=== PATIENT | male | born 1975 | race Caucasian/White ===

== ENCOUNTER 2018-09-17 21:24 | Observation (INO) | payer OTHER ==
--- NOTE | 2018-09-17 21:30 | EDPHY ---
H & P Time Seen by Provider: 09/17/18 21:24 HPI/ROS: CHIEF COMPLAINT: Seizure HISTORY OF PRESENT ILLNESS: Found at 8:46 p.m. At the nursing home having a seizure next to his bed. Given Narcan intranasally and had a total of about 8 min of seizure, eventually got 2.5 mg IM Versed and the rest IV for total of 5 mg. Remainder of history and complete review of systems unable as the patient is nonverbal on arrival. PAST MEDICAL HISTORY: Unobtainable on arrival. Paperwork from the nursing home states that he says that he told them he has personality disorder, schizophrenia and bipolar. He also told the nursing home he has stage III cancer of the lungs and stage III urethral cancer and seizures but I am unable to verify any of that. Social history: Comes from the nursing home General Appearance: Patient is obtunded Eyes: Right gaze preference with 2 mm pupils. ENT, Mouth: Normal mucous membranes. No tongue lacerations seen. Respiratory: Normal respiratory effort, breath sounds equal, lungs are clear to auscultation. Cardiovascular: Regular rate and rhythm. Gastrointestinal: Abdomen is soft and non tender. Neurological: Patient has spontaneous respirations. He does have a little bit of movement of his extremities. Nonverbal. Skin: Warm and dry, no rashes. No lacerations or abrasions. Musculoskeletal: No peripheral edema. No extremity deformity or step-off. No spinal step-off or tenderness. Psychiatric: Unable, nonverbal Emergency Department course/MDM: Patient has oxygen saturation in the mid 90s on nasal cannula. Plan for Chem 8, EKG, CBC and electrolytes, Tylenol and aspirin, ethanol. Head and cervical spine CT. 2022: Starting to wake up, slurred speech and very groggy. Is moving all 4 extremities. Does not remember any of the events. Plan for admission for observation overnight with prolonged seizure at least 8 min, abnormal mental status even almost 2 hr later. 8: Discussed with Garcia. Admit PCU. Constitutional: Initial Vital Signs Temperature (C) 36.4 C 09/17/18 21:24 Heart Rate 54 L 09/17/18 21:24 Respiratory Rate 16 09/17/18 21:24 Blood Pressure 128/85 H 09/17/18 21:24 O2 Sat (%) 99 09/17/18 21:24 O2 Delivery Mode Room Air O2 (L/minute) 15 Allergies/Adverse Reactions: No Known Allergies Allergy (Verified 09/17/18 21:32) Home Medications: Medication Instructions Recorded Alex 09/17/18 Medical Decision Making - Diagnostics EKG Interpretation: 12-lead EKG interpreted by me; official reading is in computer system. My interpretation is sinus rhythm with early repolarization, rate 54. Imaging Results: Imaging Impressions Cervical Spine CT 09/17/18 21:30 Impression: No evidence for acute intracranial abnormality. Nasal bone fracture. CT Cervical Spine Without Contrast History: Trauma. Seizure. Technique: 1.25 mm helical images were obtained of the cervical spine without contrast. Multiplanar reformation was performed. Radiation dose reduction technique was utilized. Findings: No evidence for fracture of the cervical spine. No evidence for spondylolisthesis. Disk heights are maintained. No significant spinal canal or neural foraminal encroachment. No evidence for prevertebral soft tissue swelling. Impression: No evidence for cervical spine fracture. Results called and given to Dr. Cody Tapia on 09/17/2018, 22:13. Head CT 09/17/18 21:30 Impression: No evidence for acute intracranial abnormality. Nasal bone fracture. CT Cervical Spine Without Contrast History: Trauma. Seizure. Technique: 1.25 mm helical images were obtained of the cervical spine without contrast. Multiplanar reformation was performed. Radiation dose reduction technique was utilized. Findings: No evidence for fracture of the cervical spine. No evidence for spondylolisthesis. Disk heights are maintained. No significant spinal canal or neural foraminal encroachment. No evidence for prevertebral soft tissue swelling. Impression: No evidence for cervical spine fracture. Results called and given to Dr. Cody Tapia on 09/17/2018, 22:13. Imaging: Discussed imaging studies w/ heeler Radiologist Differential Diagnosis: Differential diagnosis considered for a seizure including but not limited to electrolyte abnormality, alcohol withdrawal, medication noncompliance, head injury, and breakthrough seizure. - Data Points Laboratory Results: Laboratory Results 09/17/18 21:28 09/17/18 21:28 09/17/18 09/17/18 09/17/18 21:30 21:28 21:28 WBC 6.38 10^3/uL 10^3/uL (3.80-9.50) RBC 5.42 10^6/uL 10^6/uL (4.40-6.38) Hgb 17.1 g/dL g/dL (13.7-17.5) POC Hgb 17.7 gm/dL H gm/dL (13.7-17.5) Hct 50.6 % % (40.0-51.0) POC Hct 52 % H % (40-51) MCV 93.4 fL fL (81.5-99.8) MCH 31.5 pg pg (27.9-34.1) MCHC 33.8 g/dL g/dL (32.4-36.7) RDW 12.5 % % (11.5-15.2) Plt Count 270 10^3/uL 10^3/uL (150-400) MPV 9.6 fL fL (8.7-11.7) Neut % (Auto) 54.2 % % (39.3-74.2) Lymph % (Auto) 35.6 % % (15.0-45.0) [place] % (Auto) 8.3 % % (4.5-13.0) Eos % (Auto) 1.3 % % (0.6-7.6) Baso % (Auto) 0.3 % % (0.3-1.7) Nucleat RBC Rel Count 0.0 % % (0.0-0.2) Absolute Neuts (auto) 3.46 10^3/uL 10^3/uL (1.70-6.50) Absolute Lymphs (auto) 2.27 10^3/uL 10^3/uL (1.00-3.00) Absolute Monos (auto) 0.53 10^3/uL 10^3/uL (0.30-0.80) Absolute Eos (auto) 0.08 10^3/uL 10^3/uL (0.03-0.40) Absolute Basos (auto) 0.02 10^3/uL 10^3/uL (0.02-0.10) Absolute Nucleated RBC 0.00 10^3/uL 10^3/uL (0-0.01) Immature Gran % 0.3 % % (0.0-1.1) Immature Gran # 0.02 10^3/uL 10^3/uL (0.00-0.10) POC Sodium 143 mEq/L mEq/L (135-145) Sodium 137 mEq/L mEq/L (135-145) POC Potassium 3.2 mEq/L L mEq/L (3.3-5.0) Potassium 3.6 mEq/L mEq/L (3.3-5.0) POC Chloride 106 mEq/L mEq/L (97-110) Chloride 105 mEq/L mEq/L (97-110) Carbon Dioxide 22 mEq/l mEq/l (22-31) Anion Gap 10 mEq/L mEq/L (6-14) POC BUN 21 mg/dL mg/dL (7-23) BUN 20 mg/dL mg/dL (7-23) Creatinine 1.3 mg/dL mg/dL (0.7-1.3) POC Creatinine 1.2 mg/dL mg/dL (0.7-1.3) Estimated GFR 60 Glucose 89 mg/dL mg/dL (70-100) POC Glucose 89 mg/dL mg/dL (70-100) Calcium 9.6 mg/dL mg/dL (8.5-10.4) Salicylates < 1.0 mg/dL L mg/dL (2.0-20.0) Acetaminophen < 10 mcg/mL L mcg/mL (10-30) Ethyl Alcohol < 10 mg/dL mg/dL (0-10) Point of Care Test Results: Chemistry 09/17/18 21:30 POC Sodium 143 mEq/L mEq/L (135-145) POC Potassium 3.2 mEq/L L mEq/L (3.3-5.0) POC Chloride 106 mEq/L mEq/L (97-110) POC BUN 21 mg/dL mg/dL (7-23) POC Creatinine 1.2 mg/dL mg/dL (0.7-1.3) POC Glucose 89 mg/dL mg/dL (70-100) ISTAT H&H 09/17/18 21:30 POC Hgb 17.7 gm/dL H gm/dL (13.7-17.5) POC Hct 52 % H % (40-51) Departure - Departure Disposition: [facility] Acute Clinical Impression: Seizure Nasal bone fracture Qualifiers: Encounter type: initial encounter Fracture type: closed Qualified Code(s): S02.2XXA - Fracture of nasal bones, initial encounter for closed fracture Condition: Fair
[2018-09-17 21:37] LABS: PLATELET COUNT 270 10^3/uL (150-400)
--- NOTE | 2018-09-17 21:40 | CPEKG ---
Test Reason : OPEN Blood Pressure : / mmHG Vent. Rate : 054 BPM Atrial Rate : 054 BPM P-R Int : 166 ms QRS Dur : 119 ms QT Int : 433 ms P-R-T Axes : 029 045 041 degrees QTc Int : 411 ms Sinus rhythm Nonspecific intraventricular conduction delay ST elev, probable normal early repol pattern Confirmed by Cody Tapia ([id number]) on 09/17/2018 9:40:07 PM Referred By: Confirmed By:Cody Tapia
[2018-09-17] MEDS ORDERED: ONDANSETRON DISINTEGRATING 4 MG TAB PO PRN (22:30)
[2018-09-17] MEDS ORDERED: ACETAMINOPHEN 325 MG TAB PO PRN (22:30)
[2018-09-17] MEDS ORDERED: ONDANSETRON 4 MG/2 ML VIAL IVP PRN (22:30)
[2018-09-17] MEDS ORDERED: levETIRAcetam 1000MG/NACL 100 ML IV ONE (22:31)
--- NOTE | 2018-09-18 00:25 | PDGENHP ---
History and Physical - Chief Complaint Seizure - History of Present Illness 43 yo M w/ hx of schizophrenia and seizure d/o presents after a presumed seizure. Patient was found in his cell having a seizure, which reportedly lasted 8 minutes. He received a total of 5 mg of Versed to terminate the seizure. He was very sedated upon arrival to the ED but has been slowly becoming more alert with time. By the time of my evaluation the patient is able to contribute to the history. He tells me he only remembers falling to the floor. He says he has been having seizures since being admitted to [facility] 1 month ago. I can find no records of this in [facility]. He tells me he takes Keppra once daily for seizure disorder. He also tells me he has a history of Stage III lung CA as well as urethral CA with resultant strictures. I do not have access to records to verify these diagnoses. Case discussed with ED physician Dr. Cody Tapia, records reviewed in EMR. History Information - Allergies/Home Medication List Allergies/Adverse Reactions: No Known Allergies Allergy (Verified 09/17/18 21:32) Home Medications: Keppra 09/17/18 [Last Taken Unknown] I have personally reviewed and updated: family history, medical history - Past Medical History Additional medical history: Seizure disorder. Schizophrenia - Surgical History Additional surgical history: Wrist surgery. Knee surgery - Family History Positive for: cancer, diabetes type II - Social History Smoking Status: Never smoked Review of Systems Review of Systems: ROS: 10pt was reviewed & negative except for what was stated in HPI & below Physical Exam Physical Exam: Temp Pulse Resp BP Pulse Ox 36.4 C 54 L 16 144/94 H 94 09/17/18 21:24 09/17/18 23:48 09/17/18 23:48 09/17/18 23:48 09/17/18 23:48 Constitutional: no apparent distress, not in pain Eyes: PERRL, EOMI Ears, Nose, Mouth, Throat: moist mucous membranes, no oral mucosal ulcers Cardiovascular: regular rate and rhythym, no murmur, rub, or gallop Respiratory: no respiratory distress, clear to auscultation Gastrointestinal: normoactive bowel sounds, soft, non-tender abdomen Skin: warm, normal color Musculoskeletal: full muscle strength, no muscle tenderness Neurologic: AAOx3, CN II-XII Intact Psychiatric: interacting appropriately, flat affect Lab Data & Imaging Review 09/17/18 21:28 09/17/18 21:28 WBC 6.38 10^3/uL (3.80-9.50) 09/17/18 21: RBC 5.42 10^6/uL (4.40-6.38) 09/17/18 21: Hgb 17.1 g/dL (13.7-17.5) 09/17/18 21: POC Hgb 17.7 gm/dL (13.7-17.5) H 09/17/18 21:30 Hct 50.6 % (40.0-51.0) 09/17/18 21: POC Hct 52 % (40-51) H 09/17/18 21: MCV 93.4 fL (81.5-99.8) 09/17/18 21: MCH 31.5 pg (27.9-34.1) 09/17/18 21: MCHC 33.8 g/dL (32.4-36.7) 09/17/18 21: RDW 12.5 % (11.5-15.2) 09/17/18 21: Plt Count 270 10^3/uL (150-400) 09/17/18 21: MPV 9.6 fL (8.7-11.7) 09/17/18 21: Neut % (Auto) 54.2 % (39.3-74.2) 09/17/18 21: Lymph % (Auto) 35.6 % (15.0-45.0) 09/17/18 21: [place] % (Auto) 8.3 % (4.5-13.0) 09/17/18 21: Eos % (Auto) 1.3 % (0.6-7.6) 09/17/18: Baso % (Auto) 0.3 % (0.3-1.7) 09/17/18: Nucleat RBC Rel Count 0.0 % (0.0-0.2) 09/17/18 21: Absolute Neuts (auto) 3.46 10^3/uL (1.70-6.50) 09/17/18 21: Absolute Lymphs (auto) 2.27 10^3/uL (1.00-3.00) 09/17/18 21:28 Absolute Monos (auto) 0.53 10^3/uL (0.30-0.80) 09/17/18 21:28 Absolute Eos (auto) 0.08 10^3/uL (0.03-0.40) 09/17/18 21:28 Absolute Basos (auto) 0.02 10^3/uL (0.02-0.10) 09/17/18 21:28 Absolute Nucleated RBC 0.00 10^3/uL (0-0.01) 09/17/18 21: Immature Gran % 0.3 % (0.0-1.1) 09/17/18: Immature Gran # 0.02 10^3/uL (0.00-0.10) 09/17/18 21:28 POC Sodium 143 mEq/L (135-145) 09/17/18 21:30 Sodium 137 mEq/L (135-145) 09/17/18 21:28 POC Potassium 3.2 mEq/L (3.3-5.0) L 09/17/18 21:30 Potassium 3.6 mEq/L (3.3-5.0) 09/17/18 21:28 POC Chloride 106 mEq/L (97-110) 09/17/18 21:30 Chloride 105 mEq/L (97-110) 09/17/18 21:28 Carbon Dioxide 22 mEq/l (22-31) 09/17/18 21:28 Anion Gap 10 mEq/L (6-14) 09/17/18 21:28 POC BUN 21 mg/dL (7-23) 09/17/18 21:30 BUN 20 mg/dL (7-23) 09/17/18 21:28 Creatinine 1.3 mg/dL (0.7-1.3) 09/17/18 21:28 POC Creatinine 1.2 mg/dL (0.7-1.3) 09/17/18 21:30 Estimated GFR 60 09/17/18 21:28 Glucose 89 mg/dL (70-100) 09/17/18 21:28 POC Glucose 89 mg/dL (70-100) 09/17/18 21:30 Calcium 9.6 mg/dL (8.5-10.4) 09/17/18 21:28 Salicylates < 1.0 mg/dL (2.0-20.0) L 09/17/18 21:28 Acetaminophen < 10 mcg/mL (10-30) L 09/17/18 21:28 Ethyl Alcohol < 10 mg/dL (0-10) 09/17/18 21:28 Imaging Review: Imaging Impressions Cervical Spine CT 09/17/18 21:30 Impression: No evidence for acute intracranial abnormality. Nasal bone fracture. CT Cervical Spine Without Contrast History: Trauma. Seizure. Technique: 1.25 mm helical images were obtained of the cervical spine without contrast. Multiplanar reformation was performed. Radiation dose reduction technique was utilized. Findings: No evidence for fracture of the cervical spine. No evidence for spondylolisthesis. Disk heights are maintained. No significant spinal canal or neural foraminal encroachment. No evidence for prevertebral soft tissue swelling. Impression: No evidence for cervical spine fracture. Results called and given to Dr. Cody Tapia on 09/17/2018, 22:13. Head CT 09/17/18 21:30 Impression: No evidence for acute intracranial abnormality. Nasal bone fracture. CT Cervical Spine Without Contrast History: Trauma. Seizure. Technique: 1.25 mm helical images were obtained of the cervical spine without contrast. Multiplanar reformation was performed. Radiation dose reduction technique was utilized. Findings: No evidence for fracture of the cervical spine. No evidence for spondylolisthesis. Disk heights are maintained. No significant spinal canal or neural foraminal encroachment. No evidence for prevertebral soft tissue swelling. Impression: No evidence for cervical spine fracture. Results called and given to Dr. Cody Tapia on 09/17/2018, 22:13. Visualized and Interpreted EKG results: Yes EKG Interpretation: Positive for: normal sinsus rhythm, other (J point elevation anterior leads) Assessment & Plan Assessment: 43 yo M w/ seizure disorder presents after a seizure. Plan: 1. Seizure - Patient reportedly suffered an 8 minute seizure while in detention. He received a total of 5 mg of Versed prior to arrival. He tells me he takes Keppra daily but does not know the dose. He also tells me he has been having seizures since an admission to [facility] one month ago, I cannot find records of this in [facility]. - Admit for observation - Keppra 1g IV now - Neurology consultation placed - Obtain [facility] records in the morning if possible - Seizure precautions ordered 2. Schizophrenia, bipolar? - Patient cannot tell me if he takes medication for these conditions. 3. Cancer history - Patient tells me he has Stage III lung cancer as well as urethral cancer leading to strictures. I cannot find records related to these diagnoses. 4. Nasal fracture - Traumatic, related to seizure event. Diet - NPO pending improvement in mental status Code - Full Ppx - LMWH Dispo - Admit under observation status
[2018-09-18 04:50] LABS: PLATELET COUNT 258 10^3/uL (150-400)
[2018-09-18] MEDS: LORazepam 2 MG/ML INJ IVP PRN ×2 (08:12→09:32)
[2018-09-18] MEDS ORDERED: LORazepam 2 MG/ML INJ ONE ×2 (08:13→08:17)
[2018-09-18] MEDS ORDERED: LORazepam 2 MG/ML INJ IVP ONE (08:17)
--- NOTE | 2018-09-18 08:19 | ASMTCMCOM ---
CM Note CM Note Notes: Patient presented to [facility] ED with [facility] seizure from [facility]. He has a hx of Schizophrenia, Bipolar and Lung Ca. Per H&P, patient was at [facility] approx. 1 month ago. Anticipate patient will d/c back to [facility] when medically stable. CM will f[facility]u with [facility] when able. Plan: Likely a return to [facility] Date Signed: 09/18/2018 08:19 AM Electronically Signed By:Nia Sotelo RN
[2018-09-18] MEDS ORDERED: ENOXAPARIN 40 MG/0.4 ML SYR SC SCH (09:00)
[2018-09-18] MEDS ORDERED: levETIRAcetam 750 MG in NS 100 ML IV SCH (09:00)
--- NOTE | 2018-09-18 12:31 | NEUROPROG ---
Assessment: PLEASE SEE FULL CONSULT DICTATED NOTE 1. Transient neurologic symptoms I directly witness on the patient's events and was consistent with a nonepileptic behavioral spell. I also spoke to 2 nurses who witnessed his prolonged event this morning and these descriptions were consistent with a nonepileptic spell and nearly identical to what I directly witnessed in ICU. If the patient returns with these events, I recommend transfer from the emergency department to a facility with continuous EEG monitoring ([place] or [facility]). He is being discharged on his baseline medications including Keppra 500 mg twice daily. He has been on this medication for 1-2 years. He can follow up with his outpatient neurologist in [place]. Objective: Vital Signs Temp Pulse Resp BP Pulse Ox 36.7 C 66 16 154/77 H 94 09/18/18 09:11 09/18/18 09:11 09/18/18 09:11 09/18/18 09:11 09/18/18 09:11 Laboratory Results 09/18/18 03:54 09/18/18 03:54 09/17/18 09/18/18 09/19/18 05:59 05:59 05:59 Intake Total 150 Output Total 130 Balance 20 Allergies/Adverse Reactions: No Known Allergies Allergy (Verified 09/17/18 21:32)
[2018-09-18 12:34] VITALS: BP 148/85
--- NOTE | 2018-09-18 13:50 | GCON ---
NEUROLOGY CONSULT REFERRING PHYSICIAN: Jerad Rivero MD CHIEF COMPLAINT: convulsion BILLING INFORMATION: This is 45 minutes in critical care time in acute evaluation, diagnosis and treatment of an active convulsive event in my presence in the ICU. HISTORY OF PRESENT ILLNESS: The patient is a 43-year-old gentleman who was at the skilled nursing. Apparently, he had a convulsive event at the skilled nursing and was brought to the ER. He was given Narcan intranasally and apparently had several minutes of convulsive activity, getting Versed. He was then admitted from the ER for further evaluation. He had imaging in the emergency department, including CT of the cervical spine, which showed no evidence of cervical spine fracture, and CT of the head, which showed no evidence of acute intracranial abnormality. Then around 8:00 or 8:30 this morning, the patient apparently had a repeat convulsive event on . I spoke directly to 2 nurses who directly observed this event. Basically, the patient stated he was feeling like he was going to have a seizure and then tightened up all 4 extremities into a position, with generalized shivering and forced eye closure. In fact, during the event, he went from the supine to the prone position apparently volitionally. He received a total dose of 4 mg of IV benzodiazepine, and the event resolved after around 20-22 minutes. Then, he told the ICU physician that he was having an event while he was totally awake and alert, that he was "having a seizure." This was right prior to me seeing the patient. I walked in the room. The patient was awake, alert, and lucid in conversation, and then proceeded to have an event in my presence. Essentially, after asking him to hyperventilate in terms of a provocation type maneuver, he began having what appeared to be volitional clenching of his fists , then tightening his whole body in the position and rocking back and forth with forced eye closure. I was immediately able to speak with him after 2 or 3 minutes and tell him that I did not think this was a seizure. He was clearly cogent and understood what I was saying and then responded back and let me know, though, that he has had real seizures in the past. REVIEW OF SYSTEMS: Ten-point review of systems done, only pertinent to the HPI. For past medical history, social history, family history, medications, and allergies, see Dr. Rivero's H and P. PHYSICAL EXAM: The patient was awake and alert. Face symmetric. No aphasia. No focal weakness. He had an event in my presence, as described in the HPI; this was consistent with a nonepileptic behavioral spell. IMPRESSION AND PLAN: 1. Transient neurologic symptoms. 2. Non-epileptic events Based on the descriptions of the events this morning and my direct observation of the event in front of me in the ICU, these events are most consistent with nonepileptic behavioral spells. The patient was counseled at length. He states that he has had "seizures" in the past as well. This is unclear. He states they began after a "brain injury" (~ 3 or 4 years ago, per patient). Certainly, this could be an epilepsy risk factor. At this point, I cannot verify this. Going forward, I recommend he continue Keppra 500 mg twice daily. We discussed potential risks, benefits and alternatives to Keppra, including moodiness, anger , suicidal and homicidal ideation. He has been on this medication for ~ 2 years (per patient report) without any of these mood side effects. I screened him in great detail, and the patient tells me he has been on this medication, as noted, for around 2 years without any mood changes whatsoever to his baseline. I counseled him that if he were to have any mood side effects from Keppra, it should be discontinued immediately, and he could be on a different anti-seizure medication. The patient lives in [place] and will follow up with his neurologist in [place], who he thinks he may have seen previously for ongoing neurological care. As these events were consistent with nonepileptic behavioral events, he will be discharged back to the skilled nursing. He will be on indefinite driving restrictions and seizure precautions. He is agreeable. If the patient were to return for these similar events, I recommend that he be not admitted to [facility] as we do not have continuous video EEG monitoring. He should be transferred to a facility which provides continuous EEG monitoring for definitive electrographic spell classification. No further recommendations. We will sign off now and follow up as needed. Please do not hesitate to call if there are any questions or changes in neurologic status with this patient. /[id number]/MODL MTDD
--- NOTE | 2018-09-18 15:35 | GCON ---
CRITICAL CARE CONSULTATION. HISTORY OF PRESENT ILLNESS: This patient is a 43-year-old male who was in care home who apparently was thought to have seizure at [facility] and was somnolent in the emergency department and got Narcan intranas ally and had several minutes of some type of convulsive activity leading later to Versed. He was adm itted for further evaluation. This morning said he was having a seizure again and apparently volitio garcía went from a supine position and climbed into a position, tightened up all 4 extremities i ncluding closing his eyes tightly and had generalized shivering. He was treated with 4 mg of Ativan at that time and the event resolved after about 20 minutes. He came to the ICU where I observed him and he also went to a position, though remained awake and told me he was having a seizure at th at time. There was no tonoclonic activity observed and no eye movement, and I continued to talk to t he patient with appropriate given and take. During that time, his blood pressure and heart rate symone ined unchanged and showed no evidence of seizure activity at that time. He was also seen by Neurolog y and had a similar event in his presence, though he was able to follow commands, hyperventilated, an d was able to carry on a conversation with Neurology and clearly knew what he was saying and responde d back and said that he had real seizures in the past. REVIEW OF SYSTEMS: Otherwise negative including any recent infections or head trauma. PAST MEDICAL HISTORY: Seizure disorder and at least as listed in his history as supposed to be on Ke ppra. He also has history of schizophrenia. PAST SURGICAL HISTORY: Wrist and knee surgeries. HOME MEDICATION: Only is Keppra. FAMILY HISTORY: Lacks seizures, but does have cancer and diabetes. SOCIAL HISTORY: He is a nonsmoker, no alcohol, and as I said he is in fact incarcerated. MEDICATIONS: Tylenol, Lovenox, Keppra, Ativan p.r.n., and Zofran. PHYSICAL EXAM: VITAL SIGNS: At the time of my visit, his blood pressure was 106/77, heart rate 69, respirations 18, oxygen saturation 94% on room air. GENERAL: He was mildly somnolent, but easily aw sole. He answered questions appropriately and was in no apparent respiratory distress. HEENT: His p upils were equally round and reactive to light without nystagmus or scleral icterus. Mucous membrane s moist without erythema or exudate. NECK: Supple without adenopathy or jugular vein distention. L UNGS: Breath sounds were clear to auscultation bilaterally without wheezes, rubs, rales. HEART: Re gular rate and rhythm without murmurs, rubs, gallops. ABDOMEN: Soft, nontender, nondistended withou t hepatosplenomegaly. EXTREMITIES: No clubbing, cyanosis, or edema. NEUROLOGIC: Notable for mild somnolence as described above, but no obvious focal abnormalities. My exam was hindered by his position. SKIN: Warm and dry without evidence of rash. OBJECTIVE DATA: White count 6.3, hematocrit 50, platelets 270. Normal complete metabolic panel. To xicology screen positive for marijuana only. Alcohol was normal. ASSESSMENT AND PLAN: What sounds to be probable pseudo-seizure, since his symptoms were quite atypic al and I think it is very unlikely that it is in fact seizure. It is not clear to me the sequence of events, but certainly Narcan is known to induce seizure in patients and if his Narcan was given firs t and that was followed by seizure activity that could potentially explain it. I defer to Dr. Dakotah cha any further recommendations, but I think he is quite stable and can probably return to the [facility]. /[id number]/MODL
--- NOTE | 2018-09-19 03:23 | GDS ---
DISCHARGE DIAGNOSES: 1. Pseudoseizures. 2. Schizophrenia. HISTORY OF PRESENT ILLNESS: The patient is a 43-year-old male who presented after having a [facility] i n [facility]. He was admitted under observation. He had multiple recurrent events throughout his hospital stay here. He was seen in consultation with Neurology. These were clearly pseudoseizures. No furt her aggressive measures were performed, and he was return to [facility]. DISCHARGE MEDICATIONS: Please see computer record for full detailed list. There were no new medicat ions given at time of hospital discharge. ADDITIONAL DISCHARGE INSTRUCTIONS: Discharge back to [facility]. Patient was seen and examined by me on the day of discharge. /[id number]/MODL
== END 2018-09-18 14:15 ==
LOC: EDUNIT# → F2W 09-18 00:28 → F2N 09-18 08:45
PROVIDERS: ADMIT Student in an Organized Health Care Education/Training Program; ATTEND Internal Medicine
DX: R56.9 Unspecified convulsions (principal); R29.818 Other symptoms and signs involving the nervous system; F20.9 Schizophrenia, unspecified; S02.2XXA Fracture of nasal bones, initial encounter for closed fracture; W19.XXXA Unspecified fall, initial encounter; Y92.149 Unspecified place in prison as the place of occurrence of the external cause
CPT/HCPCS: 70450; 72125; 93005; 96365; 96372; 96375; 96376; 99285; G0378; 80305; 82435-PO; 82565-PO; 82947-PO; 84132-PO; 84295-PO; 84520-PO; 85014-PO; G0480; J1650; J1953; J2060; J2405

== ENCOUNTER 2018-10-19 17:23 | Emergency (ER) | payer OTHER ==
[2018-10-19 17:33] VITALS: BP 158/120
--- NOTE | 2018-10-19 17:39 | EDPHY ---
H & P Stated Complaint: + DVT R LEG Source: Patient Exam Limitations: No limitations - Personal History Current Tetanus Diphtheria and Acellular Pertussis (TDAP): Unsure - Medical/Surgical History Hx Asthma: No Hx Chronic Respiratory Disease: Yes Hx Diabetes: No Hx Cardiac Disease: No Hx Renal Disease: No Hx Cirrhosis: No Hx Alcoholism: No Hx HIV/AIDS: No Hx Splenectomy or Spleen Trauma: No Other PMH: seizure, tbi, suicide attempt by hanging, Cancer stage 3 urethral cancer and stage 3 lung cancer, bipolar, malignant stricture disease, stroke - Social History Smoking Status: Heavy smoker Time Seen by Provider: 10/19/18 17:33 HPI/ROS: HPI: This is a 43-year-old male who presents with Chief Complaint: Positive for right DVT from retirement Location: Right leg Quality: Swelling and pain Duration: 4 days Signs and Symptoms: No bleeding, no radiation, no numbness, no weakness, no tingling, no incontinence, no decreased range of motion, + swelling, + pain, no fever Timing: Rapid onset, constant Severity: Moderate Context: Patient has a history of schizophrenia, stage III urethral cancer and lung cancer, presents with [facility] [employer] from retirement with outpatient lower extremity venous ultrasound showing occlusive mid calf deep venous thrombosis that I personally reviewed the report. Patient reports that he is ambulatory without deficits. He complains of constant, moderate, nonradiating pain. Denies LOC/head injury/neck pain/dizziness/nausea/vomiting/amnesia. Chart review shows that the patient was admitted to this hospital and November for seizures but neurology evaluated the patient and diagnosed him with pseudoseizures. Heavy smoker in the past but none since incarcerated. Modifying Factors: None Comment: ROS: A comprehensive 10 system review of systems is otherwise negative aside from elements mentioned in the history of present illness. MEDICAL/SURGICAL/SOCIAL HISTORY: Medical history: Schizophrenia, seizure, tbi, suicide attempt by hanging, Cancer stage 3 urethral cancer and stage 3 lung cancer, bipolar, malignant stricture disease, stroke Surgical history: Denies Social history: Currently incarcerated. Heavy smoker. CONSTITUTIONAL: Polite and cooperative, in retirement uniform, handcuffed to the bed , awake and alert, no obvious distress HEENT: Atraumatic and normocephalic. NECK: supple EXTREMITIES: 2/2 pedal pulses, strength 5/5, right lower extremity is slightly larger than the left lower extremity. Warm to touch. No redness, warmth. Positive Homans sign on the right. No palpable cords. No varicose veins. DIP/ PIP/MCP flexion/extension intact with good light touch sensation. no deformities , no clubbing, no cyanosis or edema. NEUROLOGICAL: no focal neuro deficits. GCS 15. Light touch sensation intact. SKIN: Warm and dry, no erythema. no rash. Good capillary refill. (Khadijah Stiles) Constitutional: Initial Vital Signs Temperature (C) 36.8 C 10/19/18 17:30 Heart Rate 69 10/19/18 17:30 Respiratory Rate 16 10/19/18 17:30 Blood Pressure 158/120 H 10/19/18 17:30 O2 Sat (%) 96 10/19/18 17:30 O2 Delivery Mode Room Air Allergies/Adverse Reactions: No Known Allergies Allergy (Verified 09/17/18 21:32) Home Medications: Medication Instructions Recorded levETIRAcetam [Keppra 500 mg (*)] 500 mg PO BID 09/18/18 Advair 10/19/18 Albuterol 10/19/18 Apixaban [Eliquis 30-day Starter 1 kit PO AD #1 kit 10/19/18 Pack] Buspar (*) 10/19/18 Flomax 10/19/18 Lasix 10/19/18 Prilosec 10/19/18 Seroquel 10/19/18 Tylenol 10/19/18 Medical Decision Making ED Course/Re-evaluation: Patient has an outpatient ultrasound that shows right lower extremity DVT His vital signs are stable and No signs of neurovascular compromise/tenting of skin/compartment syndrome/extremities and joints examined above and below area of concern and are neurovascularly intact/cellulitis. Patient was given Eliquis 10 mg and prescription for same. He was advised that he is not to take naproxen with Eliquis due to increased bleeding risk. This patient was seen under the supervision of my secondary supervising physician. I evaluated care for this patient independently. Discussed this patient with Dr. Call who did not see the patient. (Khadijah Stiles) I did not see this patient while he was in the emergency department. However his care is discussed with the PA while the patient was in the department. I agree with treatment plan and management (Johnathon Call) Differential Diagnosis: Leg swelling including but not limited to hypoalbuminemia, congestive heart failure, cor pulmonale, chronic venous stasis and DVT. (Khadijah Stilse) - Data Points Medications Given: Discontinued Medications Apixaban (Eliquis) 10 mg PO EDNOW ONE Stop: 10/19/18 17:48 Last Admin: 10/19/18 17:59 Dose: 10 mg Departure - Departure Disposition: Home, Routine, Self-Care Condition: Good Instructions: Apixaban (By mouth), Deep Vein Thrombosis (ED) Additional Instructions: Please start taking Eliquis 10 mg twice a day x7 days, followed by 5 mg twice a day for a minimum of 3 months. He has been given a 30 day started pack from the emergency room and will need a new prescription from his primary care provider. Patient is not to take NSAIDs along with Eliquis due to increased bleeding risk. Patient is to follow up with his primary care provider in the next 7-10 days. Referrals: PCP Not In,Dictionary [Medical Doctor] - As per Instructions Prescriptions: Apixaban [Eliquis 30-day Starter Pack] 1 kit PO AD #1 kit
[2018-10-19] MEDS ORDERED: APIXABAN 5 MG TAB PO ONE (17:47)
== END 2018-10-19 18:08 | disposition home or self-care (01) ==
DX: I82.4Z1 Acute embolism and thrombosis of unspecified deep veins of right distal lower extremity (principal); C68.0 Malignant neoplasm of urethra; C34.90 Malignant neoplasm of unspecified part of unspecified bronchus or lung; G40.909 Epilepsy, unspecified, not intractable, without status epilepticus; F20.9 Schizophrenia, unspecified; F31.9 Bipolar disorder, unspecified; Z87.820 Personal history of traumatic brain injury; Z87.891 Personal history of nicotine dependence

== ENCOUNTER 2018-11-04 13:59 | Emergency (ER) | payer OTHER ==
--- NOTE | 2018-11-04 14:09 | EDPHY ---
H & P Time Seen by Provider: 11/04/18 14:01 HPI/ROS: CHIEF COMPLAINT: "I have urinary retention" HISTORY OF PRESENT ILLNESS: 43-year-old male medical history significant for malignant stricture disease, urethral cancer, lung cancer recent diagnosis of right lower extremity DVT, currently living in long term arrives via police complaining of incomplete evacuation of bladder. He has been able to urinate but states that he feels he is incompletely voiding. Sensation of suprapubic fullness. No back or flank pain. No fever or chills. No acute testicular or genitalia trauma Last oral intake 11:00 a.m. Today REVIEW OF SYSTEMS: 10 systems reviewed and negative with the exception of the elements mentioned in the history of present illness PAST MEDICAL & SURGICAL HISTORY: Seizure disorder. Schizophrenia. TBI. Urethral cancer. Lung cancer. Bipolar disorder. Malignant stricture disease. CVA. Recent DVT, currently on Eliquis initiated less than 1 month ago in the emergency department SOCIAL HISTORY: currently living in long term PHYSICAL EXAM (Prior to examination, patient consented to physical exam, hands were washed and my usual and customary physical exam procedures followed) 1) GENERAL: Well-developed, well-nourished, alert and oriented. Appears to be in no acute distress. 2) HEAD: Normocephalic, atraumatic 3) HEENT: Pupils equal, round, reactive to light bilaterally. Sclera anicteric. 4) NECK: Full range of motion, no meningeal signs. 5) LUNGS: Clear auscultation bilaterally, no wheezes, no rhonchi, no retractions. 6) HEART: Regular rate and rhythm, no murmur, no heave, no gallop. 7) ABDOMEN: No guarding, no rebound, no focal tenderness, negative McBurney's, negative Dougherty's, negative Rovsing's, negative peritoneal sign, 8) MUSCULOSKELETAL: Moving all extremities, no focal areas of tenderness, no obvious trauma. No peripheral edema or discoloration. 9) BACK: No CVA tenderness, no midline vertebral tenderness, no fluctuance, no step-off, no obvious trauma, no visual or palpable abnormality. 10) SKIN: No rash, no petechiae. 11) : Circumcised, no urethral discharge or bleeding, bilateral testicles nontender. DIFFERENTIAL DIAGNOSIS: In no particular order, including but not limited to, cystitis, urinary retention, malignancy - Medical/Surgical History Hx Asthma: No Hx Chronic Respiratory Disease: Yes Hx Diabetes: No Hx Cardiac Disease: No Hx Renal Disease: No Hx Cirrhosis: No Hx Alcoholism: No Hx HIV/AIDS: No Hx Splenectomy or Spleen Trauma: No Other PMH: seizure, tbi, suicide attempt by hanging, Cancer stage 3 urethral cancer and stage 3 lung cancer, bipolar, malignant stricture disease, stroke - Social History Smoking Status: Heavy smoker Constitutional: Initial Vital Signs Temperature (C) 36.6 C 11/04/18 14:06 Heart Rate 91 11/04/18 14:06 Respiratory Rate 18 11/04/18 14:06 Blood Pressure 169/128 H 11/04/18 14:06 O2 Sat (%) 94 11/04/18 14:06 O2 Delivery Mode Room Air Allergies/Adverse Reactions: No Known Allergies Allergy (Verified 09/17/18 21:32) Home Medications: Medication Instructions Recorded levETIRAcetam [Keppra 500 mg (*)] 500 mg PO BID 09/18/18 Advair 10/19/18 Albuterol 10/19/18 Apixaban [Eliquis 30-day Starter 1 kit PO AD #1 kit 10/19/18 Pack] Buspar (*) 10/19/18 Flomax 10/19/18 Lasix 10/19/18 Prilosec 10/19/18 Seroquel 10/19/18 Tylenol 10/19/18 Cephalexin [Keflex] 500 mg PO TID 7 Days cap 11/04/18 Medical Decision Making ED Course/Re-evaluation: 208 p.m.: Will obtain bladder scan and re-evaluate. Care of patient under supervision of primary Supervising physician Dr Pearson with whom I discussed case. Patient states that due to his urethral strictures Hoffman catheters have never been able to been passed without OR intervention. No history of suprapubic catheter. 2:24 p.m.: Bladder scan [address] Hoffman catheter. Patient notes difficulty with this in the past due to his urethral strictures, notes that he previously niece says stated general anesthesia while in [place] 3 years ago. 3:07 p.m.: Nursing staff has attempted to pass a Hoffman catheter, unsuccessfully , able to pass approximately 2 cm into his urethra before significant resistance. Patient notes no prior history of suprapubic catheter. I consulted with Dr. Shea Guerra, urology at this time, who will come to the ER to evaluate patient, recommends patient be admitted and we will bring the urology car to the emergency department. 3:10 p.m.: Consultation Dr. Payne who will admit patient. 3:49 p.m.: Dr. Guerra has evaluated the patient, was able to pass a Hoffman catheter after dilation. Does not feel he needs to be admitted to the hospital may return to the long term. He will follow up with her in the office next week. - Data Points Medications Given: Discontinued Medications Lidocaine (Uroject Lidocaine 2% Jelly) 20 ml UR EDNOW ONE Stop: 11/04/18 14:25 Last Admin: 11/04/18 14:25 Dose: 20 ml Departure - Departure Disposition: Home, Routine, Self-Care Clinical Impression: Urinary retention, History of urethral stricture, History of cancer of urethra Condition: Fair
[2018-11-04] MEDS ORDERED: LIDOCAINE 2% JELLY 20 ML (UROJECT) ONE ×2 (14:23→15:43)
[2018-11-04] MEDS ORDERED: LIDOCAINE 2% JELLY 20 ML (UROJECT) UR ONE (14:24)
[2018-11-04 15:29] LABS: PLATELET COUNT 273 10^3/uL (150-400)
[2018-11-04] MEDS ORDERED: ONDANSETRON DISINTEGRATING 4 MG TAB PO PRN (15:36)
[2018-11-04] MEDS ORDERED: ONDANSETRON 4 MG/2 ML VIAL IVP PRN (15:36)
[2018-11-04] MEDS ORDERED: ACETAMINOPHEN 325 MG TAB PO PRN (15:36)
[2018-11-04 15:46] LABS: INR 1.25 (0.83-1.16); PROTIME(PATIENT) 15.9 SEC (12.0-15.0)
--- NOTE | 2018-11-04 16:06 | PDCONSULT ---
[employer] Note: RFC urinary retention, urethral stricture Requested by PETRA Haji HPI 43M care home inmate presents w urinary retention, bladder scan 350ml. Pt w reported hx "urethra cancer" w hx multiple urethral strictures requiring OR procedures in past w urinary retention. Has had 4 OR procedures in the past. Last one in [place]. Nursing attempted 12F mehta, met resistance at tip of penis. PMH/PSH- see above FH/SH noncontributory ROS 10 pt ROS performed, as stated in HPI, otherwise neg PE Gen NAD A*O CV regular Lungs Normal effort Abd soft Ext warm normal penile external anatomy. Using sterile technique w betadine prep and urojet lidocaine jelly, used ricardo sounds to assess strictures. Dilated fossa navicularis stricture w 14F ricardo sound, then dilated another pendulus urethral stricture w same sound. Able to advance 12F silicone catheter into into bladder, past what felt to be a 3rd stricture in bulbar urethra, w return of clear yellow urine. Removed this mehta and then passed a 16F silicone catheter w moderate resistance met again at these areas but able to pass this catheter without significant resistance and again return of clear urine. Balloon inflated w 10cc sterile water and hooked to drainage bag. Urine sample also obtained. Minimal bleeding at meatus. Pt tolerated procedure well. A/P Urinary retention 2/2 urethral stricture disease. May be scars vs recurrent tumor. DC to care home w mehta catheter for 2 weeks. Will need to be seen as outpatient at my office for mehta removal in 2 weeks and office cystoscopy for further evaluation. Shea Guerra MD [facility]
[2018-11-04 16:33] VITALS: BP 170/110
== END 2018-11-04 16:33 | disposition home or self-care (01) ==
LOC: EEVIPCON 13:59 → UNDOADMOB 15:10
PROC: 0T7D7ZZ Dilation of Urethra, Via Natural or Artificial Opening (ICD-10-PCS; principal; 2018-11-04)
PROC: 0T9B70Z Drainage of Bladder with Drainage Device, Via Natural or Artificial Opening (ICD-10-PCS; principal; 2018-11-04)
PROC: 4A0D7LZ Measurement of Urinary Volume, Via Natural or Artificial Opening (ICD-10-PCS; 2018-11-04)
DX: R33.9 Retention of urine, unspecified (principal); N35.919 Unspecified urethral stricture, male, unspecified site; G40.909 Epilepsy, unspecified, not intractable, without status epilepticus; F20.9 Schizophrenia, unspecified; F17.200 Nicotine dependence, unspecified, uncomplicated; Z79.01 Long term (current) use of anticoagulants; Z86.718 Personal history of other venous thrombosis and embolism; Z85.54 Personal history of malignant neoplasm of ureter; Z85.118 Personal history of other malignant neoplasm of bronchus and lung; Z86.73 Personal history of transient ischemic attack (TIA), and cerebral infarction without residual deficits; Z91.5 Personal history of self-harm

== ENCOUNTER 2018-11-20 20:31 | Observation (INO) | payer OTHER ==
[2018-11-20] MEDS ORDERED: NS 1,000 ML IV ONE (20:36)
[2018-11-20] MEDS ORDERED: levETIRAcetam 1000MG/NACL 100 ML IV ONE (20:37)
--- NOTE | 2018-11-20 20:42 | EDPHY ---
H & P Time Seen by Provider: 11/20/18 20:38 HPI/ROS: HPI CHIEF COMPLAINT: Multiple seizures HISTORY OF PRESENT ILLNESS: 43-year-old male, history of seizure disorder on Keppra, presents emergency room from alf for multiple seizures. The patient had a witnessed 8 min long seizure by alf staff. EMS and 911 were called. He received 5 mg IM Versed and then subsequently got an IV established received 2.5 mg IV Versed. This was given prior to arrival. EMS reports he then had 2 more seizures during transport. EMS describes seizures as jerking movements of his upper extremities. He arrives to the emergency room in ER room 11 where I greeted him. He is able to answer my questions. He states he had a seizure. He is postictal upon arrival. Past Medical History: Seizures on Keppra. DVT on Xarelto, lung CA, urethral CA , schizophrenia, traumatic brain injury, bipolar disorder, CVA, malignant stricture Past Surgical History: Unknown Social History: Unknown, currently incarcerated Family History: Unknown ROS REVIEW OF SYSTEMS: Limited due to postictal state. Exam Constitutional nontoxic, confused, sleepy. Eyes normal conjunctivae and sclera, EOMI, PERRLA. HENT oropharynx no tongue laceration. Small amount of dark blood along the upper gumline. normal inspection, atraumatic, moist mucus membranes, no epistaxis, neck supple/ no meningismus, no raccoon eyes. Respiratory clear to auscultation bilaterally, normal breath sounds, no respiratory distress, no wheezing. Cardiovascular rate normal, regular rhythm, no murmur, no edema, distal pulses normal. Gastrointestinal soft, non-tender, no rebound, no guarding, normal bowel sounds, no distension, no pulsatile mass. Genitourinary no CVA tenderness. Musculoskeletal no midline vertebral tenderness, full range of motion, no calf swelling, no tenderness of extremities, no meningismus, good pulses, neurovascularly intact. Skin pink, warm, & dry, no rash, skin atraumatic. Neurologic awake, sleepy, answers questions. Postictal. Confused. Differential Diagnosis: Includes but is not limited to in a particular order seizures, epilepsy, status, intracranial bleed, drug intoxication Medical Decision Making: Plan for this patient who had multiple seizures CT scan head without contrast, blood work, electrolytes, urinalysis, alcohol, drug screen gentle IV fluids, 1 g of Keppra. Re-evaluation: Of note old records reviewed. Patient has been admitted in the past for seizures possibly pseudoseizures. However it is unclear. He is on Keppra. EKG interpretation by me on record in [employer] system. Impression time of EKG 2046, sinus rhythm rate of 81 ST elevation in V1 V2 V3 which is very similar to his previous EKG dated 09/17/2018. Same morphology. Early Re-lana pattern. Patient has no chest pain with this EKG. CT scan head without contrast negative for acute blood called to me by Dr. Cortes. 2139: plan for admission to the hospital for observation overnight given 3 seizures. Patient has no seizure activity here in emergency room. He has received 1 g of Keppra. Vital signs are stable. Patient denies any chest pain or shortness of breath does complain of a frontal headache. Blood work reviewed. Plan for admission observation overnight. Hospitalist service consult Dr. Nuno 2156: Spoke with Dr. Reid, reviewed this patien't EKG, early-repol. Source: Patient, EMS - Medical/Surgical History Hx Asthma: No Hx Chronic Respiratory Disease: Yes Hx Diabetes: No Hx Cardiac Disease: No Hx Renal Disease: No Hx Cirrhosis: No Hx Alcoholism: No Hx HIV/AIDS: No Hx Splenectomy or Spleen Trauma: No Other PMH: seizure, tbi, suicide attempt by hanging, Cancer stage 3 urethral cancer and stage 3 lung cancer, bipolar, malignant stricture disease, stroke - Social History Smoking Status: Heavy smoker Constitutional: Initial Vital Signs Temperature (C) 37.5 C 11/20/18 20:40 Heart Rate 92 11/20/18 20:40 Respiratory Rate 16 11/20/18 20:40 Blood Pressure 181/125 H 11/20/18 20:40 O2 Sat (%) 92 11/20/18 20:40 O2 Delivery Mode Room Air Allergies/Adverse Reactions: polyester fibers Allergy (Verified 11/20/18 20:36) wool Allergy (Verified 11/20/18 20:36) Home Medications: Medication Instructions Recorded Acetaminophen [Tylenol ES 500 mg 1,000 mg PO BID 11/04/18 (*)] Advair Inhaler (Unk Strength) 1 puffs IH DAILY 11/04/18 Fluticasone Nasal [Flonase Nasal 1 sprays NASAL DAILY 11/04/18 [place]] QUEtiapine FUMARATE [Seroquel 300 mg PO HS 11/04/18 300mg (*)] Rivaroxaban [Xarelto] 20 mg PO DAILY 11/04/18 Tamsulosin HCl [Flomax 0.4 MG (*)] 0.4 mg PO DAILY 11/04/18 levETIRAcetam [Keppra 500 mg (*)] 500 mg PO BID 11/04/18 Omeprazole 20 mg PO BID 11/20/18 Prazosin HCl 2 mg PO DAILY 11/20/18 SUMAtriptan [Imitrex 50 MG (*)] 100 mg PO BID PRN 11/20/18 hydrOXYzine HCL [hydrOXYzine HCL 50 mg PO BID 11/20/18 (RX)] Medical Decision Making - Data Points Laboratory Results: Laboratory Results 11/20/18 20:40 11/20/18 20:40 Medications Given: Discontinued Medications Acetaminophen (Tylenol) 650 mg PO Q4HRS PRN PRN Reason: Pain, Mild/Fever, Can Take PO Stop: 05/19/19 22:12 Last Admin: 11/21/18 05:18 Dose: 650 mg Acetaminophen (Tylenol) 1,000 mg PO BID AMANDA Stop: 05/20/19 08:59 Last Admin: 11/21/18 08:22 Dose: Not Given Hydroxyzine HCl (Hydroxyzine Hcl) 50 mg PO BID AMANDA Stop: 05/20/19 08:59 Last Admin: 11/21/18 08:20 Dose: 50 mg Sodium Chloride (Ns) 1,000 mls @ 0 mls/hr IV ONCE ONE; Wide Open PRN Reason: Protocol Stop: 11/20/18 20:37 Last Admin: 11/20/18 21:05 Dose: 1,000 mls Levetiracetam (Keppra (Premix)) 100 mls @ 400 mls/hr IV EDNOW ONE Stop: 11/20/18 20:51 Last Admin: 11/20/18 21:08 Dose: 100 mls Influenza Virus Vaccine Quadrival (Flulaval Quad [id number] (6mo+)) 0.5 ml IM .ONCE ONE Stop: 11/21/18 10:00 Last Admin: 11/21/18 10:50 Dose: 0.5 ml Levetiracetam (Keppra) 500 mg PO BID AMANDA Stop: 05/20/19 08:59 Last Admin: 11/21/18 08:21 Dose: 500 mg Ondansetron HCl (Zofran Odt) 4 mg PO Q4HRS PRN PRN Reason: Nausea/Vomiting, Use 1st Stop: 05/19/19 22:12 Last Admin: 11/21/18 05:18 Dose: 4 mg Pantoprazole Sodium (Protonix) 40 mg PO DAILY AMANDA Stop: 05/20/19 08:59 Last Admin: 11/21/18 08:21 Dose: 40 mg Pneumococcal Polyvalent Vaccine (Pneumovax 23) 0.5 ml IM .ONCE ONE Stop: 11/21/18 10:00 Last Admin: 11/21/18 10:52 Dose: 0.5 ml Prazosin HCl (Minipress) 2 mg PO DAILY AMANDA Stop: 05/20/19 08:59 Last Admin: 11/21/18 09:28 Dose: 2 mg Rivaroxaban (Xarelto) 20 mg PO DAILY AMANDA Stop: 05/20/19 08:59 Last Admin: 11/21/18 08:20 Dose: 20 mg Tamsulosin HCl (Flomax) 0.4 mg PO DAILY AMANDA Stop: 05/20/19 08:59 Last Admin: 11/21/18 08:21 Dose: 0.4 mg Point of Care Test Results: Chemistry 11/20/18 21:03 POC Troponin I 0.00 ng/mL ng/mL (0.00-0.08) Departure - Departure Disposition: [facility] Acute Clinical Impression: Seizure Condition: Fair
[2018-11-20 20:56] LABS: PLATELET COUNT 267 10^3/uL (150-400)
[2018-11-20] MEDS ORDERED: ONDANSETRON DISINTEGRATING 4 MG TAB PO PRN (22:13)
[2018-11-20] MEDS ORDERED: ONDANSETRON 4 MG/2 ML VIAL IVP PRN (22:13)
[2018-11-20] MEDS: ACETAMINOPHEN 325 MG TAB PO PRN (22:39)
--- NOTE | 2018-11-20 23:32 | CPEKG ---
Test Reason : OPEN Blood Pressure : / mmHG Vent. Rate : 081 BPM Atrial Rate : 081 BPM P-R Int : 167 ms QRS Dur : 122 ms QT Int : 363 ms P-R-T Axes : 016 024 034 degrees QTc Int : 422 ms Sinus rhythm Nonspecific intraventricular conduction delay Anterior infarct, acute (LAD) Confirmed by Edmundo Jung ([id number]) on 11/20/2018 11:31:57 PM Referred By: Confirmed By:Edmundo Jung
--- NOTE | 2018-11-20 23:54 | GHP ---
DATE OF ADMISSION: 11/20/2018 CHIEF COMPLAINT: Seizure. HISTORY OF PRESENT ILLNESS: This is a 43-year-old male, who is incarcerated with a history of seizur e disorder and bipolar schizoaffective. 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 He is on Keppra 500 mg twice daily. Apparently, he was in his usual state of health when apparently he had a witnessed 8 minute long seizure by assisted staff. He then received 5 mg of Versed prior to arrival. EMS also reported 2 seizures which they describes as jerking movements of his upper extremities. The patient states that he had many seizures althoug h it is unclear what that really means, several through today. He mentions that his blood pressure w as a little bit high and the nurse gave him some clonidine. He went back to his cell and had the sei zure. He denies any fever or chills. He is having some urinary retention issues. No focal weakness . No headache. REVIEW OF SYSTEMS: A 10-point review of systems was obtained and otherwise negative. PAST MEDICAL HISTORY: 1. Bipolar schizoaffective. 2. DVT on Xarelto. 3. Urinary strictures. 4. Pulmonary nodules. 5. Traumatic brain injury. 6. Previous seizure disorder although it is unclear what that details. SOCIAL HISTORY: He is incarcerated. FAMILY HISTORY: Reviewed and noncontributory. PHYSICAL EXAMINATION: VITAL SIGNS: Afebrile, blood pressure is 142/86, heart rate 72, oxygen satura tion 97% on room air. GENERAL APPEARANCE: The patient is well developed, in no apparent distress. HEENT: Nonicteric sclerae. Extraocular muscles intact. Moist mucous membranes. Some dry blood in the mouth. NECK: Supple. LUNGS: Good effort. Clear to auscultation bilaterally. CARDIOVASCULAR: Regular rate and rhythm. No murmurs, rubs or gallops. ABDOMEN: Positive bowel sounds. Soft, non tender, nondistended. No hepatosplenomegaly. EXTREMITIES: No clubbing, cyanosis, or edema. SKIN: Without rash. Dry, intact. NEUROLOGIC: Alert and oriented x3. 5/5 strength in all 4 extremities. PSYCH: Normal mood and affect. LABS: CBC is completely normal. Chemistry also is completely normal with a normal bicarb. CT scan of the head normal. Chest x-ray, negative. ASSESSMENT: A 43-year-old male presenting with seizure versus pseudoseizure. 1. Seizure versus pseudoseizure. Will admit patient overnight for observation. The patient has bee n on Keppra and will continue. Although this was a witnessed seizure he did not have any abnormaliti es of his chemistries that would suggest a seizure. Last time he was here he had several witnessed p seudoseizures. Neurology did recommend transfer to a monitored unit if this continues. At this poin t, we could probably just discharge him back to assisted tomorrow and if this happens again then maybe se nd him to a monitored unit. Will continue his Keppra as before. 2. History of deep venous thrombosis. Continue Xarelto. 3. History of urethral stricture. We will continue Flomax. He has seen Dr. Guerra prior. /[id number]/MODL
[2018-11-21] MEDS: ACETAMINOPHEN 325 MG TAB PO PRN (05:18)
[2018-11-21 07:24] VITALS: BP 136/91
[2018-11-21] MEDS ORDERED: levETIRAcetam 500 MG TAB PO SCH (09:00)
[2018-11-21] MEDS ORDERED: PRAZOSIN HCL 1 MG CAP PO SCH (09:00)
[2018-11-21] MEDS ORDERED: FLUTICASONE NASAL 120 SPRAYS/16 GM MDI EACHNARE SCH (09:00)
[2018-11-21] MEDS ORDERED: ADVAIR IH SCH (09:00)
[2018-11-21] MEDS ORDERED: RIVAROXABAN 20 MG TAB PO SCH (09:00)
[2018-11-21] MEDS ORDERED: TAMSULOSIN HCL 0.4 MG CAP PO SCH (09:00)
[2018-11-21] MEDS ORDERED: hydrOXYzine HCL 25 MG TAB PO SCH (09:00)
[2018-11-21] MEDS ORDERED: PANTOPRAZOLE SODIUM 40 MG TAB PO SCH (09:00)
[2018-11-21] MEDS ORDERED: ACETAMINOPHEN 500 MG TAB PO SCH (09:00)
[2018-11-21] MEDS ORDERED: PNEUMOCOCCAL 0.5ML VACCINE VIAL (PNEUMOVAX 23) IM ONE (09:59)
[2018-11-21] MEDS ORDERED: QUEtiapine FUMARATE 300 MG TAB PO SCH (21:00)
--- NOTE | 2018-11-22 07:46 | GDS ---
DISCHARGE DIAGNOSES: 1. 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 2. Bipolar schizoaffective. 3. History of deep venous thrombosis on Xarelto. 4. Traumatic brain injury. 5. History of urethral stricture. HISTORY: Liam is a 43-year-old male, incarcerated with a known history of seizures and pseudoseiz ures. He was previously hospitalized and had multiple recurrent seizures witnessed by myself, neurol ogy and nursing. These were clearly pseudoseizures. He was discharged back to care home. Neurology asse ssment was that if he has any recurrence of seizures he needs to be at [facility] for continuous EEG. He presented from care home with again another seizure. We saw nothing to suggest true seizures on this h ospitalization as well. His laboratory studies were negative. He did not bite his tongue. He had n o recurrence after a period of observation so he was discharged back to care home. It is recommended he b e transferred to [facility] Emergency Room if he has any future seizures as they would have the ability to monitor with continuous EEG. DISCHARGE MEDICATIONS: Please see computerized record for full detailed list. There are no new medi cations given at time of hospital discharge. ADDITIONAL DISCHARGE INSTRUCTIONS: If the patient has recurrence events recommend evaluation at [facility] for continuous EEG. The patient seen and examined by me on the day of discharge. /[id number]/MODL
== END 2018-11-21 11:23 ==
LOC: EDUNIT# → EEVIPCON 20:31 → F3N 22:25
PROVIDERS: ADMIT Internal Medicine; ATTEND Internal Medicine
DX: R56.9 Unspecified convulsions (principal); Z23 Encounter for immunization; F25.0 Schizoaffective disorder, bipolar type; Z86.718 Personal history of other venous thrombosis and embolism; Z79.01 Long term (current) use of anticoagulants; Z87.820 Personal history of traumatic brain injury; Z85.59 Personal history of malignant neoplasm of other urinary tract organ
CPT/HCPCS: 70450; 71045; 90471; 93005; G0378; 80305; 84484-ER; 96365; G0008; G0009; G0480; J1953